=== PATIENT | female | born 1990 | race Caucasian/White ===

== ENCOUNTER 2016-11-15 08:29 | Emergency (ER) | payer OTHER ==
[~2016-11-15] VITALS: Ht 162.6 cm; Wt 53.0 kg
[2016-11-15 08:35] VITALS: Ht 162.6 cm; Wt 53.0 kg
[2016-11-15 09:00] LABS: URINE BLOOD (Dip) POC 3+ (NEGATIVE)
[2016-11-15] MEDS ORDERED: IBUPROFEN 600 MG TAB PO ONE (09:00)
--- NOTE | 2016-11-15 09:01 | ERD ---
ER Documentation Chief Complaint Date/Time DATE: 11/15/16 TIME: 08:59 Chief Complaint DYSURIA X1 WEEK, "I HAVE A UTI" HPI 26-year-old otherwise healthy female presents to the emergency department complaining of frequency of urination, and dysuria which has gradually worsened over the past 10 days. Patient states she is currently experiencing a 6 out of 10 "uncomfortable" burning pain which is worse when urinating. She states that today she experienced mild right sided flank pain which has been intermittent. Patient attempted to treat her symptoms with Azo and cranberry juice yesterday with only mild relief. Patient denies any abdominal pain, vaginal discharge, hematuria, diarrhea, nausea, or vomiting. ROS All systems reviewed and are negative except as per history of present illness. Medications Home Meds Active Scripts Electrolyte,Oral (Pedialyte) 1,000 Ml Solution, 100 ML PO Q6 Y for DYSURIA for 5 Days, ML Prov:ISABEL REMY PA-C 11/15/16 Cephalexin* (Keflex*) 500 Mg Capsule, 500 MG PO TID for 7 Days, CAP Prov:ISABEL REMY PA-C 11/15/16 Naproxen* (Naprosyn*) 500 Mg Tablet, 500 MG PO BID Y for PAIN AND/OR INFLAMMATION, #30 TAB Prov:ISABEL REMY PA-C 11/15/16 Allergies Allergies: Coded Allergies: sulfamethoxazole (Verified Allergy, Intermediate, ANGIOEDEMA, 11/15/16) trimethoprim (Verified Allergy, Intermediate, ANGIOEDEMA, 11/15/16) PMhx/Soc Hx Alcohol Use: No Hx Substance Use: No Smoking Status: Never smoker Physical Exam Vitals Vital Signs Date Time Temp Pulse Resp B/P Pulse Ox O2 Delivery O2 Flow Rate FiO2 11/15/16 08:35 98.4 71 16 121/71 99 Physical Exam Const: Well-developed, well-nourished, no acute distress Head: Atraumatic Neck: Full range of motion..~ No meningismus. Resp: Clear to auscultation bilaterally Cardio: Regular rate and rhythm, no murmurs Abd: Soft, non tender, non distended. Normal bowel sounds Skin: No petechiae or rashes Back: No midline or flank tenderness Ext: No cyanosis, or edema Neur: Awake and alert Psych: Normal Mood and Affect Results 24 hrs Laboratory Tests Test 4/23/17 08:30 11/15/16 09:01 Urine Color ORANGE Urine Clarity SLIGHTLY CLOUDY Urine pH 6.0 Urine Specific [place] >=1.030 Urine Ketones NEGATIVE Urine Nitrite POSITIVE Urine Bilirubin NEGATIVE Urine Urobilinogen 0.2 E.U./dL Urine Leukocyte Esterase 2+ Urine Microscopic RBC 25-50/HPF Urine Microscopic WBC 10-25/HPF Urine Epithelial Cells FEW Urine Bacteria MODERATE Urine Hemoglobin 3+ Urine Glucose NEGATIVE% Urine Total Protein 2+ Bedside Urine pH (LAB) 5.5 Bedside Urine Protein (LAB) 3+ Bedside Urine Glucose (UA) Negative Bedside Urine Ketones (LAB) Negative Bedside Urine Blood 3+ Bedside Urine Nitrite (LAB) Positive Bedside Urine Leukocyte Esterase (L 1+ Current Medications Medications (Trade) Dose Ordered Sig/Martinez Route PRN Reason Start Time Stop Time Status Last Admin Dose Admin Ibuprofen (Motrin) 600 mg ONCE ONCE PO 11/15/16 09:00 11/15/16 09:01 DC 11/15/16 09:10 Procedures/MDM Otherwise healthy 26-year-old female presents with dysuria and frequency of urination 10 days. Urine analysis revealed evidence of leukocyte esterase and nitrites. Urine negative. Patient's clinical presentation consistent with urinary tract infection. Patient denies any history of fever, chills, nausea or vomiting and she did not display tenderness to palpation of her flanks during exam. At this time I have low suspicion for pyelonephritis, acute renal calculi, ovarian torsion, tubo- ovarian abscess or ectopic . Patient to begin antibiotic therapy and continue Motrin for pain. Based on patient's history of present illness and physical examination the decision was made to discharge. The patient was re-evaluated after ED treatment and stabilizing measures, and symptoms have improved. There is no evidence of life threatening injuries or illnesses at this time. On re-examination, patient resting in no distress, stable vital signs, reports feeling better and safe for discharge with outpatient follow up with PMD in 1-2 days. Patient given return precautions. Departure Diagnosis: Primary Impression: Dysuria Additional Impressions: Frequency of urination UTI (urinary tract infection) Urinary tract infection type: site unspecified Hematuria presence: without hematuria Qualified Code: N39.0 - Urinary tract infection without hematuria, site unspecified ISABEL REMY PA-C Nov 15, 2016 09:01
[2016-11-15 09:16] LABS: ADD UMIC YES; URINE BILIRUBIN (Dip) NEGATIVE (NEGATIVE); URINE BLOOD (Dip) 3+ (NEGATIVE); URINE COLOR ORANGE (YELLOW); URINE GLUCOSE (Dip) NEGATIVE (NEGATIVE); URINE KETONES (Dip) NEGATIVE (NEGATIVE); URINE LEUKOCYTE ESTERASE (Dip) 2+ (NEGATIVE); URINE NITRITE (Dip) POSITIVE (NEGATIVE); URINE TOTAL PROTEIN (Dip) 2+ (NEGATIVE); URINE UROBILINOGEN (Dip) 0.2 E.U./dL (0.1-1.0)
[2016-11-15] MEDS ORDERED: ELEC100080 PO (09:29)
[2016-11-15] MEDS ORDERED: CEPH-443 PO (09:29)
[2016-11-15] MEDS ORDERED: NAPR-260 PO (09:29)
[2016-11-15 09:31] LABS: BACTERIA,URINE MODERATE; URINE RBCS 25-50 /HPF (0)
== END 2016-11-15 09:56 | disposition home or self-care (01) ==
LOC: FTE 08:29
DX: R30.0 Dysuria (principal); R35.0 Frequency of micturition; N39.0 Urinary tract infection, site not specified
CPT/HCPCS: 81001; Z7502; Z7610; 81003; 99283

== ENCOUNTER 2018-01-03 21:49 | Emergency (ER) | END 2018-01-03 23:16 | disposition home or self-care (01) ==

== ENCOUNTER 2018-01-10 04:14 | Emergency (ER) | END 2018-01-10 05:42 | disposition home or self-care (01) ==